=== PATIENT | female | born 1990 | race Caucasian/White ===

== ENCOUNTER → 2016-06-18 | Outpatient (CLI) | payer OTHER, MEDICAID ==
[~2016-06-18] MED LIST: ALBU8.5H5 INH; ALPR0.25 PO; CEFD300C2 PO; CYCL5TAB PO; DILT120C11 PO; IBUP-1222 PO; MOME13HF2 INH; ONDA4TAB10 PO; OXYC-302 PO; PREN-28 PO
== END | disposition home or self-care (01) ==
LOC: CFH 14:22
PROVIDERS: ATTEND Internal Medicine
DX: Z02.9 Encounter for administrative examinations, unspecified (principal)

== ENCOUNTER → 2016-07-13 | Outpatient (CLI) | payer OTHER, MEDICAID | END | disposition home or self-care (01) | LOC: CFH 15:32 | PROVIDERS: ATTEND Internal Medicine | DX: M51.36 Other intervertebral disc degeneration, lumbar region (principal); R20.0 Anesthesia of skin | CPT/HCPCS: 72141; 72148 ==